=== PATIENT | male | born 1990 | race African-American/Black ===

== ENCOUNTER 2017-02-17 11:59 | Emergency (ER) | payer OTHER ==
[~2017-02-17] VITALS: Ht 188 cm; Wt 151.5 kg
[~2017-02-17 11:59] MED LIST: NONE PER PT
[2017-02-17 12:05] VITALS: BP 167/111
== END 2017-02-17 13:32 | disposition home or self-care (01) ==
LOC: ED 13:26
DX: T59.811A Toxic effect of smoke, accidental (unintentional), initial encounter (principal); J70.5 Respiratory conditions due to smoke inhalation; Y92.009 Unspecified place in unspecified non-institutional (private) residence as the place of occurrence of the external cause
CPT/HCPCS: 36415; 71020; 82375; 93005